=== PATIENT | female | born 1935 | race Caucasian/White ===

== ENCOUNTER 2017-05-30 16:44 | Inpatient (IN) | payer MEDICARE ==
[~2017-05-30] VITALS: Ht 167.6 cm; Wt 81.5 kg
[~2017-05-30 16:44] MED LIST: BAYER CHEWABLE81 MG PO; BRILINTA90 MG PO; DESERYL100 MG PO; DITROPAN X5 MG/BOTTL PO; FISH OIL 1,2001 CAP PO; FLAXSEED OIL1000 MG; GLUCOSAMINE & C1 CAP; HYZAAR 100-25 T1 TAB PO; LOPID600 MG PO; NORVASC5 MG PO; PRAVACHOL40 MG PO; SYNTHROID100 MCG PO
[2017-05-30 17:45] LABS: BASOPHILS 0.1 % (0-2); EOSINOPHILS 0.6 % (0-7); HEMATOCRIT 33.5 % (36.0-48.0); HEMOGLOBIN 11.4 g/dL (12-16); IMMATURE GRANULOCYTES 0.6 % (0-5); LYMPHOCYTES 5.6 % (15-50); MCH 31.3 pg (26.0-34.0); MEAN PLATELET VOLUME 9.6 fL (7.4-10.4); MONOCYTES 11.6 % (2-11); NEUTROPHILS 81.5 % (40-80); PLATELET COUNT 298 10x3/uL (130-400); RBC 3.64 10x6/uL (4.00-5.40); WBC 19.3 10x3/uL (4.8-10.8)
[2017-05-30 17:53] LABS: APTT 41.8 SECONDS (22.8-39.4); INR 2.08 (0.85-1.17); PROTIME 23.4 SECONDS (11.6-15.0)
[2017-05-30 18:10] LABS: BILIRUBIN - TOTAL 0.86 mg/dL (0.2-1.3); CALCIUM 10.4 mg/dL (8.5-10.1); CARBON DIOXIDE 24.5 mmol/L (21.0-32.0); CREATININE - SERUM 3.8 mg/dL (0.6-1.3); POTASSIUM - SERUM 4.5 mmol/L (3.5-5.1); PROTEIN - SERUM 7.4 g/dL (6.4-8.2)
[2017-05-30 18:24] LABS: AMYLASE - SERUM 17 U/L (25-115); LIPASE 82 U/L (73-393)
[2017-05-30 18:42] LABS: APPEARANCE TURBID (CLEAR); BILIRUBIN NEGATIVE (NEGATIVE); COLOR YELLOW (YELLOW); GLUCOSE NEGATIVE (NEGATIVE); KETONE NEGATIVE (NEGATIVE); NITRITE NEGATIVE (NEGATIVE); PROTEIN 1+ mg/dL (NEGATIVE); SPECIFIC GRAVITY 1.015 (1.005-1.020); UROBILINOGEN NORMAL (NORMAL)
[2017-05-30 18:43] LABS: BACTERIA MANY /hpf (NONE SEEN); EPITHELIAL CELLS 0-5 /hpf (0-5); RED CELLS - URINE 0-5 /hpf (0-5); WHITE CELLS - URINE >50 /hpf (0-5)
--- NOTE | 2017-05-30 20:14 | NUR ---
PATIENT ARRIVED FROM THE ER VIA STRETCHER , ALERT AND ORIENTED TO ROOM AND CALL LIGHT. CALL LIGHT PLACED IN REACH.
[2017-05-30] MEDS ORDERED: CIPRO500 MG PO (20:21)
[2017-05-30] MEDS ORDERED: BETAPACE 80 MG80 MG PO (20:22)
[2017-05-30] MEDS ORDERED: CELEBREX200 MG PO (20:22)
[2017-05-30 21:12] VITALS: BP 136/76
[2017-05-31 00:52] VITALS: BP 124/44
[2017-05-31 00:56] VITALS: BP 136/76; BMI 27.5
--- NOTE | 2017-05-31 01:27 | NUR ---
PATIENT PULLED IV OUT STATING THAT IT HURT. NEW IV STARTED IN LEFT AC. CALL LIGHT IN REACH, WILL CONTINUE TO MONITOR.
--- NOTE | 2017-05-31 05:23 | NUR ---
DIRECTOR OF SPORTS PERFORMANCE AT BEDSIDE TO OBTAIN VITALS, CALL LIGHT IN REACH. WILL CONTINUE WITH PLAN OF CARE.
[2017-05-31 05:29] LABS: BASOPHILS 0.1 % (0-2); EOSINOPHILS 0.5 % (0-7); HEMATOCRIT 32.5 % (36.0-48.0); HEMOGLOBIN 10.9 g/dL (12-16); IMMATURE GRANULOCYTES 0.6 % (0-5); LYMPHOCYTES 6.4 % (15-50); MCH 30.6 pg (26.0-34.0); MCHC 33.5 g/dL (31.0-37.0); MCV 91.3 fL (80.0-100.0); MEAN PLATELET VOLUME 9.5 fL (7.4-10.4); MONOCYTES 11.8 % (2-11); NEUTROPHILS 80.6 % (40-80); PLATELET COUNT 301 10x3/uL (130-400); RBC 3.56 10x6/uL (4.00-5.40); RDW 15.2 % (11.5-14.5)
[2017-05-31 05:53] VITALS: BP 131/70
[2017-05-31 05:56] LABS: ANION GAP 18.2 mmol/L (8-16); CALCIUM 9.5 mg/dL (8.5-10.1); CARBON DIOXIDE 21.1 mmol/L (21.0-32.0); CREATININE - SERUM 3.4 mg/dL (0.6-1.3); POTASSIUM - SERUM 4.3 mmol/L (3.5-5.1)
--- NOTE | 2017-05-31 06:30 | NUR ---
PATIENT HAS BEEN YELLING AT STAFF DURING THE NIGHT, SHE STATES " I AM NOT GETTING GOOD CARE AND NO ONE HAS BEEN IN HERE ALL NIGHT AND I WANT TO SPEAK TO SOMEONE WITH AUTHORITY" I NOTIFIED BEAR MELENDEZ. STAFF HAS BEEN IN AND OUT OF HER ROOM SEVERAL TIMES DURING THE NIGHT, I SPOKE WITH DR CLEMENTE AND HE ORDERED 5 MG OF HALDOL IM, PATIENT NOTIFIED OF ORDER, CALL LIGHT IN REACH. PATIENT ALSO COMPLAINED THAT SHE NEEDED O2, I CHECKED O2 SAT AND IT WAS 95% ON ROOM AIR.
--- NOTE | 2017-05-31 07:29 | NUR ---
AM ROUNDS- ADMINISTERED 5MG OF HALDOL ORDERED. PT IN BED, ASKING ABOUT BREAKFAST, INFORMED PT THAT BREAKFAST WILL COME AROUND 0800. RESP EVEN AND UNLABORED, LT AC INFUSING NS AT 100. PROVIDED PT WITH CUP OF WATER. PT DENIES ANY OTHER NEEDS AT THIS TIME. CALL LIGHT IN REACH, NAD NOTED, WILL CONTINUE PLAN OF CARE.
[2017-05-31 08:00] VITALS: BP 123/73
--- NOTE | 2017-05-31 09:06 | NUR ---
HELPED PT TO REPOSITIONED IN BED, AND HELPED HER TO USE BEDPAN. PT WILL NOTIFY WHEN READY TO GET OFF BEDPAN. CALL LIGHT IN REACH
--- NOTE | 2017-05-31 10:30 | NUR ---
AM MEDS GIVEN. PT C/O OF BACK PAIN. ASKING FOR SOMETHING FOR PAIN. JOSESITO GUIDE DOG TRAINER IN ROOM TO ASSESS PT.
[2017-05-31 13:20] VITALS: BP 149/71
--- NOTE | 2017-05-31 14:01 | NUR ---
ORDERS FOR MAGALI PER DR. MAGAÑA.
--- NOTE | 2017-05-31 15:15 | NUR ---
APPLIED BANGAY TO PT'S BACK AND RT LEG. PT DENIES ANY OTHER NEEDS AT THIS TIME. CALL LIGHT IN REACH, NAD NOTED.
[2017-05-31 15:28] LABS: ERYTHROCYTE SEDIMENTATION RATE 27 mm/hr (0-30)
[2017-05-31 16:47] VITALS: BP 157/85
[2017-05-31 16:50] LABS: APPEARANCE HAZY (CLEAR); BILIRUBIN NEGATIVE (NEGATIVE); COLOR YELLOW (YELLOW); GLUCOSE NEGATIVE (NEGATIVE); KETONE NEGATIVE (NEGATIVE); NITRITE NEGATIVE (NEGATIVE); PROTEIN 2+ mg/dL (NEGATIVE); SPECIFIC GRAVITY 1.015 (1.005-1.020); UROBILINOGEN NORMAL (NORMAL)
[2017-05-31 16:53] LABS: WHITE CELLS - URINE >50 /hpf (0-5)
[2017-05-31 16:54] LABS: CREATININE - URINE 57.2 mg/dL (30-125); PRO/CRE RATIO URINE 1.5 mg/g; PROTEIN - URINE 84.7 mg/dL (0.0-11.9)
[2017-05-31 16:55] LABS: BACTERIA FEW /hpf (NONE SEEN)
--- NOTE | 2017-05-31 20:26 | NUR ---
PT PULLED IV OUT AT THIS TIME "PT STATES I HAVENT SLEPT IN 3 DAYS, SO I PULLED THIS DAMN THING OUT" CATH TIP WAS INTACT. PT IS REFUSING A RESTICK AT THIS TIME. PT IS ALSO REFUSING VITALS AT THIS TIME. PT STATES "I DONT WANT THAT BITCH IN HERE BOTHERING ME ALL NIGHT" NO VITAL SIGNS WILL BE TAKEN PER PT REQUEST.
--- NOTE | 2017-05-31 23:48 | NUR ---
PT ALLOWED A RESTICK AT THIS TIME. IV RESITED TO RIGHT FOREARM 22GAUGE. WILL RESUME FLUIDS
--- NOTE | 2017-06-01 02:30 | NUR ---
PT PULLED IV OUT FOR SECOND TIME TONIGHT. PT STATES "I DONT WANT THAT IN MY ARM" PT IS SHOWING INCREASED AGITATION AND STATES "IM NOT STAYING ANOTHER NIGHT" PT IS UNABLE TO BE CONSOLED.
--- NOTE | 2017-06-01 02:49 | NUR ---
CALL LIGHT IN REACH, WILL CONTINUE WITH PLAN OF CARE.
[2017-06-01 07:27] LABS: BASOPHILS 0.2 % (0-2); EOSINOPHILS 0.4 % (0-7); HEMATOCRIT 33.3 % (36.0-48.0); HEMOGLOBIN 11.5 g/dL (12-16); IMMATURE GRANULOCYTES 1.5 % (0-5); LYMPHOCYTES 7.3 % (15-50); MCH 30.3 pg (26.0-34.0); MCHC 34.5 g/dL (31.0-37.0); MEAN PLATELET VOLUME 9.3 fL (7.4-10.4); MONOCYTES 9.5 % (2-11); NEUTROPHILS 81.1 % (40-80); PLATELET COUNT 329 10x3/uL (130-400); RDW 14.7 % (11.5-14.5); WBC 19.3 10x3/uL (4.8-10.8)
[2017-06-01 07:28] LABS: MCV 87.6 fL (80.0-100.0)
--- NOTE | 2017-06-01 07:46 | NUR ---
AM ROUNDS - PT IN BED AT THIS TIME AND APPEARS TO BE SLEEPING. NO IV, PT CONTINUES TO PULL OUT. PT IS ON ROOM AIR. TRINITY MAT ON AND WORKING. REFUSES SCD. UP WITH ASSIST. BED AT LOWEST POSITION. CALL PAUL IN USE/REACH. SIDE RAILS UP X2. WILL CONTINUE TO MONITOR
[2017-06-01 07:55] LABS: ALBUMIN 2.7 g/dL (3.4-5.0); BILIRUBIN - TOTAL 0.7 mg/dL (0.2-1.3); CALCIUM 8.8 mg/dL (8.5-10.1); CARBON DIOXIDE 20.1 mmol/L (21.0-32.0); PROTEIN - SERUM 6.3 g/dL (6.4-8.2)
[2017-06-01 08:00] VITALS: BP 152/91
[2017-06-01 08:01] LABS: ANION GAP 19.2 mmol/L (8-16); CREATININE - SERUM 1.8 mg/dL (0.6-1.3); POTASSIUM - SERUM 3.3 mmol/L (3.5-5.1)
[2017-06-01 11:48] VITALS: BP 138/84
[2017-06-01 13:25] VITALS: Ht 167.6 cm; Wt 81.5 kg
[2017-06-01 16:15] VITALS: BP 157/90
--- NOTE | 2017-06-01 17:41 | NUR ---
PT IN BED AT THIS TIME WITH NO NEEDS. WILL CONTINUE TO MONITOR
--- NOTE | 2017-06-01 20:10 | NUR ---
ASSISTED PT TO BATHROOM. PT NOW IN BED RESTING QUEITLY. TRINITY ALARM ON. BREATHING EVEN AND UNLABORED. BED IN LOW POSITION, CALL LIGHT WITHIN REACH. WILL CTM.
[2017-06-01 21:38] VITALS: BP 144/68
[2017-06-02 01:53] VITALS: BP 133/72
[2017-06-02 04:59] VITALS: BP 125/63
--- NOTE | 2017-06-02 05:30 | NUR ---
PT IN BED RESTING QUIETLY. CONTINUES TO GET OUT OF BED WITHOUT CALLING FOR ASSISTANCE. TRINITY ALARM ON. BED IN LOW POSITION, CALL LIGHT WITHIN REACH. WILL CTM.
[2017-06-02 06:31] LABS: HEMATOCRIT 35.4 % (36.0-48.0); HEMOGLOBIN 12.4 g/dL (12-16); MCH 30.5 pg (26.0-34.0); PLATELET COUNT 371 10x3/uL (130-400); RBC 4.07 10x6/uL (4.00-5.40); RDW 14.4 % (11.5-14.5)
[2017-06-02 06:50] LABS: ALBUMIN 2.7 g/dL (3.4-5.0); BILIRUBIN - TOTAL 0.8 mg/dL (0.2-1.3); CALCIUM 8.8 mg/dL (8.5-10.1); CARBON DIOXIDE 22.1 mmol/L (21.0-32.0); PROTEIN - SERUM 7.3 g/dL (6.4-8.2)
[2017-06-02 06:51] LABS: ANION GAP 15.8 mmol/L (8-16); CREATININE - SERUM 1.1 mg/dL (0.6-1.3)
[2017-06-02 06:52] LABS: POTASSIUM - SERUM 2.9 mmol/L (3.5-5.1)
[2017-06-02 06:59] LABS: LYMPHOCYTES 20 % (15-50); MONOCYTES 2 % (2-11); NEUTROPHILS 77 % (40-80)
[2017-06-02 07:00] LABS: PLATELET ESTIMATE INCREASED; TEAR DROP CELLS OCC
[2017-06-02 07:01] LABS: POIKILOCYTOSIS OCC
--- NOTE | 2017-06-02 07:10 | NUR ---
MORNING ROUNDS MADE. PATIENT SITTING ON BEDSIDE. ASSISTED TO RESTOOM AND BACK TO BED. DENIES ANY NEEDS. WILL CONTINUE TO MONITOR. CPOC.
[2017-06-02 08:35] VITALS: BP 138/82
--- NOTE | 2017-06-02 09:32 | NUR ---
PATIENT SITTING UP IN BED, WATCHING TV. MORNING MEDS GIVEN WITHOUT ISSUES. NO REQUESTS AT THIS TIME. CPOC.
--- NOTE | 2017-06-02 10:37 | NUR ---
PATIENT SITTING IN BED, WATCHING TV. ADVISED IV ANTIBIOTICS HAVE BEEN ORDERED FOR HER. STATES, "MY ARMS ARE SO SORE, THEY NEED A REST. THAT'S ONE THING I WILL REFUSE. THEY CAN GIVE ME PILLS". DURING REPORT, IT WAS NOTED THAT THE PATIENT HAD PULLED OUT HER LAST 2 IVS. SHE REFUSES TO ALLOW ME TO INSERT AN IV AT THIS TIME. WILL CALL MD AND ASK TO ADVISE.
--- NOTE | 2017-06-02 11:25 | NUR ---
NFORMED TAE GUERRA OF PATIENT REFUSING IV. MARI TALKED TO PATIENT AND EXPLAINED TO HER THAT SHE IS IN THE HOSPITAL TO RECEIVE IV ANTIBIOTICS BECAUSE SHE IS TOO SICK TO BE HOME AND TAKE ANTIBIOTICS PO. PT RELUCTANTLY VOICED UNDERSTANDING AND AGREED TO ALLOW ME TO PLACE 20G IV IN LEFT FOREARM. PTS BROTHER WAS IN HALLWAY WHEN I FINISHED THE IV. HER CALLED AND ASKED ME TO HAVE HER CALL HIM BACK. WILL PASS MESSAGE ALONG TO PATIENT. STARTING ANTIBIOTICS ORDERED. WILL CONTINUE TO MONITOR. CPOC.
--- NOTE | 2017-06-02 11:57 | NUR ---
PATIENT SITTING UP IN BED, EATING LUNCH DENIES ANY NEEDS. CPOC
--- NOTE | 2017-06-02 12:05 | NUR ---
ANTIBIOTICS HUNG, IV PATENT, AND PATIENT WITHOUT COMPLAINTS. CPOC..
[2017-06-02 12:12] VITALS: BP 158/87
--- NOTE | 2017-06-02 16:16 | NUR ---
PATIENT SITTING ON BEDSIDE. ASSISTED TO BATHROOM AND BACK. DENIES ANY NEEDS AT THIS TIME. CPOC.
[2017-06-02 16:36] VITALS: BP 148/78
--- NOTE | 2017-06-02 17:51 | NUR ---
PATIENT SITTING UP IN BED, WATCHING TV. NO REQUESTS OR COMPLAINTS AT THIS TIME. CPOC.
--- NOTE | 2017-06-02 19:08 | NUR ---
EVENING ROUNDS MADE. HELPED PATIENT TO BATHROOM AND BACK. DENIES ANY NEEDS AT THIS TIME. CPOC.
[2017-06-02 21:15] VITALS: BP 151/76
--- NOTE | 2017-06-02 23:45 | NUR ---
PT IN BED RESTING AT THIS TIME. WILL CONTINUE TO MONITOR
--- NOTE | 2017-06-03 | NUR ---
PT RESTING WELL, NO CHANGES NOTED. ASSESSMENTS UNCHANGED. CALL LIGHT WITHIN REACH. WILL MONITOR.
[2017-06-03 00:50] VITALS: BP 141/85
--- NOTE | 2017-06-03 01:51 | NUR ---
PT IN BED RESTING AT THIS TIME
[2017-06-03 04:39] LABS: BASOPHILS 0 % (0-2); EOSINOPHILS 0 % (0-7); IMMATURE GRANULOCYTES 0.5 % (0-5); LYMPHOCYTES 20.4 % (15-50); MCH 30.9 pg (26.0-34.0); MCHC 34.2 g/dL (31.0-37.0); MEAN PLATELET VOLUME 11.1 fL (7.4-10.4); MONOCYTES 15.1 % (2-11); RBC 4.82 10x6/uL (4.00-5.40); RDW 12.3 % (11.5-14.5)
[2017-06-03 04:42] LABS: HEMATOCRIT 43.6 % (36.0-48.0); HEMOGLOBIN 14.9 g/dL (12-16); MCV 90.5 fL (80.0-100.0); PLATELET COUNT 252 10x3/uL (130-400); WBC 6.1 10x3/uL (4.8-10.8)
[2017-06-03 05:00] LABS: ANION GAP 14.4 mmol/L (8-16); BILIRUBIN - TOTAL 0.59 mg/dL (0.2-1.3); CALCIUM 8.7 mg/dL (8.5-10.1); CARBON DIOXIDE 21.2 mmol/L (21.0-32.0); POTASSIUM - SERUM 3.6 mmol/L (3.5-5.1); PROTEIN - SERUM 6.7 g/dL (6.4-8.2)
[2017-06-03 05:16] VITALS: BP 155/85
--- NOTE | 2017-06-03 07:15 | NUR ---
RECEIVED REPORT. ASSUMED CARE OF PATIENT. CALL LIGHT WITHIN REACH. NO DISTRESS.
--- NOTE | 2017-06-03 07:30 | NUR ---
ASSISTED PATIENT OOB TO RESTROOM AND BACK TO BED. RESP EVEN AND UNLABORED. IV FLUIDS INFUSING ORDERED. NO DISTRESS. DENIES NEEDS AT THIS TIME.
[2017-06-03 08:50] VITALS: BP 148/81
--- NOTE | 2017-06-03 10:30 | NUR ---
ASSISTED PATIENT OOB TO RESTROOM AND BACK TO BED. IV FLUIDS INFUSING ORDERED. PATIENT HAS DENIES NEEDS AT THIS TIME. CALL LIGHT PLACED WITHIN REACH. NO DISTRESS.
--- NOTE | 2017-06-03 12:00 | NUR ---
ASSISTED PATIENT TO SINK FOR ORAL CARE. NO DISTRESS.
[2017-06-03 12:20] VITALS: BP 145/81
--- NOTE | 2017-06-03 16:15 | NUR ---
ASSISTED PATIENT OOB TO RESTROOM AND BACK TO BED. CALL LIGHT PLACED WITHIN REACH. CRANBERRY JUICE PROVIDED. DENIES PAIN . NO DISTRESS.
[2017-06-03 16:39] VITALS: BP 158/91
[2017-06-03 20:00] VITALS: BP 161/81
--- NOTE | 2017-06-03 22:24 | NUR ---
INITIAL ROUNDS COMPLETEDA T 1920 HRS. PT DENIED ANY DISCOMFORT. ASSESSMENT COMPLETED AT 2004 HRS. VSS. IV TO LFA WITH NS AT 125CC/HR. IV PATENT. BRUISING NOTED TO FACE, BILAT KNEES, BILAT ARMS AND LOWER BACK. LUNGS ESSENTAILLY CTA. REFUSES SCD'S. ASSISTED TO BR AT THAT TIME. GAIT UNSTEADY. ASSISTED BACK TO BED. PT HAD MODERATE AMOUNT OF DIARRHEA. PM MEDS GIVEN. PT CURRENTLY RESTING WITH EYES CLOSED. RESP EVEN AND REGULAR. SR UP X2, CALL LIGHT WITIN REACH AND BED ALARM ON.
[2017-06-04] VITALS: BP 149/89
--- NOTE | 2017-06-04 00:27 | NUR ---
ASSISTED PT TO BR. MODERATE AMOUNT OF DIARRHEA NOTED. ASSISTED BACK TO BED. WILL CONTINUE TO MONITOR. SR UP X2, CALL LIGHT WITHIN REACH AND BED ALARM ON.
--- NOTE | 2017-06-04 02:19 | NUR ---
PT RESTING WITH EYES CLOSED. RESP EVEN AND REGULAR. SR UP X2, CALL LIGHT WITHIN REACH.
[2017-06-04 04:00] VITALS: BP 163/83
--- NOTE | 2017-06-04 04:45 | NUR ---
ASSISTED PT TO BR. GAIT UNSTEADY. VOIDED LARGE AMOUNT OF YELLOW URINE. ASSISTED BACK TO BED. SR UP X2, CALL LIGHT WITHIN REACH.
[2017-06-04 05:04] LABS: BASOPHILS 0.2 % (0-2); EOSINOPHILS 1.5 % (0-7); IMMATURE GRANULOCYTES 6.6 % (0-5); MCH 30.4 pg (26.0-34.0); MCHC 34.2 g/dL (31.0-37.0); MEAN PLATELET VOLUME 8.7 fL (7.4-10.4); MONOCYTES 12.7 % (2-11); RBC 3.91 10x6/uL (4.00-5.40); RDW 14.8 % (11.5-14.5)
[2017-06-04 05:07] LABS: HEMATOCRIT 34.8 % (36.0-48.0); HEMOGLOBIN 11.9 g/dL (12-16); PLATELET COUNT 369 10x3/uL (130-400); WBC 16.4 10x3/uL (4.8-10.8)
[2017-06-04 05:35] LABS: ALBUMIN 2.5 g/dL (3.4-5.0); ALKALINE PHOSPHATASE 106 U/L (46-116); CALCIUM 7.9 mg/dL (8.5-10.1); CARBON DIOXIDE 21.7 mmol/L (21.0-32.0); CHLORIDE - SERUM 94 mmol/L (98-107); GLUCOSE 125 mg/dL (74-106); PROTEIN - SERUM 6.5 g/dL (6.4-8.2); SODIUM 130 mmol/L (136-145)
[2017-06-04 05:36] LABS: CALC OSMOLALITY 259 mosm/kg (275-300); CREATININE - SERUM 0.6 mg/dL (0.6-1.3); UREA NITROGEN 8 mg/dL (7-18); eGFR NON AFRICAN AMERICAN > 90 mL/min (90-120)
[2017-06-04 05:37] LABS: ALT (SGPT) 30 U/L (10-68); POTASSIUM - SERUM 2.7 mmol/L (3.5-5.1)
--- NOTE | 2017-06-04 06:30 | NUR ---
K+ 2.7 THIS AM. KDUR 20 MEQ PO GIVEN PER ELECTROLYTE PROTOCOL. AM MEDS GIVEN. PT UP NUMEROUS TIMES TO BR. STATED HAD SEVERAL BOUTS OF DIARRHEA DURING SHIFT. NEEDS MET; LUISA CONTINUE TO MONITOR.
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
[2017-06-04 08:27] VITALS: BP 174/89
--- NOTE | 2017-06-04 08:31 | NUR ---
ADMINISTERED AM MEDS. AND SECOND DOSE OF 20MEQ OF K. PT STATED " I DONT WANT ANYMORE ANTIBIOTICS, I WILL REFUSE. THEY ARE MAKING ME MORE SICK." INFOMRED PT THAT THE ANTIBIOTICS ARE HELPING WITH UTI. PT STILL STATING THAT SHE WILL NOT HAVE ANYMORE ANTIBIOTICS UNTIL SHE TALKS TO A DOCTOR. PT IN BED, DENIES ANY OTHER NEEDS AT THIS TIME. CALL LIGHT IN REACH, NAD NOTED, WILL CONTINUE PLAN OF CARE.
--- NOTE | 2017-06-04 09:39 | NUR ---
ANTONIETA WITH HOUSEKEEPING NOTIFIED THIS NURSE THAT PT IS REFUSING TO HAVE ROOM CLEANED. PT WANTS TO SLEEP.
--- NOTE | 2017-06-04 10:22 | NUR ---
PT REFUSED FOR HER ANTIBIOTIC TO BE HUNG AT THIS TIME. SHE STATED " I AM NOT TAKING ANYMORE ANTIBIOTICS UNTIL I TALK TO THE DOCTOR." PT ALSO WANTS TO GET IN THE SHOWER, WILL HAVE WIND TURBINE INSTALLER GET SUPPLIES FOR SHOWER. PT UP TO SIDE OF BED, DENIES ANY OTHER NEEDS AT THIS TIME. CALL LIGHT IN REACH, TRINITY MAT IN PLACE, NAD NOTED.
--- NOTE | 2017-06-04 11:05 | NUR ---
Is the patient Alert and Oriented? Yes 0 * How many steps to enter\\exit or inside your home? "bunch" 0 * PCP DR Hirsch 0 * [facility] [address] [facility] [place] 0 * Preadmission Environment Home with Family 0 * ADLs Independent 0 * Equipment Walker 0 * Other Equipment Denies any additional DME 0 * List name and contact numbers for known caregivers / representatives who currently or will assist patient after discharge: Jesus Vicente- [facility]- [phone] 0 * Community resources currently utilized None 0 * Please name any agencies selected above. N/A 0 * Additional services required to return to the preadmission environment? No 0 * Can the patient safely return to the preadmission environment? Yes 0 * Has this patient been hospitalized within the prior 30 days at any hospital? No 0
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
--- NOTE | 2017-06-04 11:49 | NUR ---
PT GLUE SPREADER LIGHT, WANTS TO GO TO THE BATHROOM, HELPED PT TO BATHROOM AND BACK TO BED. PT ONLY URINATED. ASKED PT IF SHE HAS BEEN HAVING DIARRHEA ALL NIGHT, PT STATED I WENT A COUPLE OF TIMES, BUT THAT IS NOT UNUSUAL FOR ME TO HAVE DIARRHEA THAT'S WHY I ALWAYS WEAR BRIEFS AT HOME ALL THE TIME.
[2017-06-04 11:57] VITALS: BP 170/90
[2017-06-04] MEDS ORDERED: FLORAJEN3 CAPS460 MG PO (13:55)
[2017-06-04] MEDS ORDERED: THERMOTABS 1 GM1 GM PO (13:57)
[2017-06-04] MEDS ORDERED: OMNICEF300 MG PO (13:57)
[2017-06-04 14:11] LABS: SPE - A/G RATIO 0.8 (0.7-1.7); SPE - ALBUMIN 2.7 g/dL (2.9-4.4); SPE - ALPHA-1 GLOBULIN 0.6 g/dL (0.0-0.4); SPE - ALPHA-2 GLOBULIN 0.9 g/dL (0.4-1.0); SPE - GAMMA GLOBULIN 0.7 g/dL (0.4-1.8); SPE - M-SPIKE 0.2 g/dL (Not Observed)
[2017-06-04 15:14] LABS: UPE RAND - ALPHA 1 GLOBULIN 4.4 % (()); UPE RAND - ALPHA 2 GLOBULIN 8.9 % (()); UPE RAND - BETA GLOBULIN 22.7 % (())
--- NOTE | 2017-06-04 16:29 | NUR ---
PROVIDED VERBAL AND WRITTEN DISCHARGE TEACHING TO PT, PT VERBALIZED UNDERSTANDING REGARDING TEACHING. D/C LT FA IV, TIP INTACT. PT WAITING ON RIDE, WILL NOTIFY NURSE WHEN RIDE GETS HERE. NAD NOTED.
--- NOTE | 2017-06-04 16:45 | NUR ---
Patient Name: RAÚL KERR Encounter No: [id number] : 1935 Primary Insurance: [employer] P[employer] MCR [employer] Anticipated DC Date: 06-04-2017 Planned Disposition: Home DCP follow-up note: CM MET WITH PT IN ROOM TO DISCUSS DISCHARGE NEEDS AND PLANNING. CM DISCUSSED AVAILABILITY OF HOME HEALTH, REHAB SERVICES AND MEDICAL EQUIPMENT. PT DENIES DISCHARGE NEEDS, DECLINES HOME HEALTH SPECIFICALLY REPORTING SHE WILL CROSS THAT ROAD IF SHE NEEDS IT. PT ASKED CM TO CALL HER SPOUSE TO TRANSPORT HOME AT DISCHARGE. CM CALLED MR. KERR AT [phone], WHO REPORTS THAT IF PT CAN WALK, HE WILL HAVE PT'S SISTER IN LAW ON THE WAY TO PICK HER UP. PT REPORTS SHE CAN WALK. SPOUSE INFORMED. IMPORTANT MESSAGE FROM MEDICARE PROVIDED AND EXPLAINED. BEDSIDE NURSE NOTIFIED. Sonny Obrien, CASE MANAGEMENT
--- NOTE | 2017-06-04 16:57 | NUR ---
PT LEFT UNIT VIA WHEELCHAIR, ACCOMPANIED BY BROTHER, NA DNOTED.
[2017-06-07 19:11] LABS: AEROBE ID Final report (()); RESULT 1 Escherichia coli (())
== END 2017-06-04 16:57 | disposition home or self-care (01) | DRG 683 ==
LOC: D.ER 16:44 → D.M2 19:38
PROVIDERS: Emergency Medicine; Internal Medicine Nephrology; Physician Assistant Medical; ADMIT Family Medicine Adult Medicine
DX: N17.9 Acute kidney failure, unspecified (principal); N39.0 Urinary tract infection, site not specified; E87.1 Hypo-osmolality and hyponatremia; B96.20 Unspecified Escherichia coli [E. coli] as the cause of diseases classified elsewhere; N10 Acute pyelonephritis; I12.9 Hypertensive chronic kidney disease with stage 1 through stage 4 chronic kidney disease, or unspecified chronic kidney disease; N18.9 Chronic kidney disease, unspecified; E87.6 Hypokalemia; E86.0 Dehydration

== ENCOUNTER 2017-07-30 11:11 | Outpatient (CLI) | payer MEDICARE ==
[~2017-07-30] VITALS: Ht 167.6 cm; Wt 75.0 kg
--- NOTE | ~2017-07-30 | HEMODYNAMI ---
PATIENT:RACHEL KERR MEDICAL RECORD: [id number] : 39 LOCATION:D.CAT ADMISSION DATE: 07/30/17 Generatedon:07/30/201713:33 Patient name: RACHEL KERR Patient #: [id number] SSN: : [birth year] Date of study: 07/30/2017 Page: Of Hemodynamic Procedure Report Patient Data Patient Demographics Procedure consent was obtained First Name: RACHEL Gender: Female Last Name: USHA : 1935 [facility] Initial: MADAY Age: 82 year(s) Patient #: [id number] Race: Additional ID: [id number] Contact details Address: [address] [place] [address] State: [place] City: [facility] Zip code: [address] Past Medical History Allergies Allergen Reaction Date Comments Reported Sulfa drugs 07/13/2015 Admission Admission Data Admission Date: 07/30/2017 Admission Time: 11:11 Lab Results Lab Result Date: 07/30/2017 Lab Result Time: 0:00 Biochemistry Name Units Result Min Max BUN mg/dl 15 --(--*-)-- 7 18 Creatinine mg/dl 1 --(--*-)-- 0.6 1.3 CBC Name Units Result Min Max Hemoglobin g/dl 11.9 *-(----)-- 13.5 17.5 Procedure Procedure Types Cath Procedure Diagnostic Procedure Cardioversion Procedure Description Procedure Date Procedure Date: 07/30/2017 Procedure Start Time: 13:24 Procedure End Time: 13:30 Procedure Staff Name Function Nicolas Hewitt MD Performing Physician Imani Lozano RT Monitor Vincenzo Adame RN Nurse Calixto Mariscal Jr, CRNA Additional personnel Procedure Data Cath Procedure Fluoroscopy Diagnostic fluoroscopy Total fluoroscopy Time: 0 time: 0 min min Diagnostic fluoroscopy Total fluoroscopy dose: 0 dose: 0 mGy mGy Contrast Material Contrast Material Type Amount (ml) Isovue 300 0 Estimated blood loss: 0 ml Procedure Complications No complications Procedure Medications Medication Administration Route Dosage Oxygen NC 2 l/min Refer to Anesthesia Notes for Sedation Medications Hemodynamics Rest Heart Rate: 40 (bpm) Snapshots Pre Cath Intra NCS Post Cath Vital Signs Time Heart Resp SPO2 etCO2 NIBP (mmHg) Rhythm Pain Sedation Rate (ipm) (%) (mmHg) Status Level (bpm) 13:20:12 67 17 100 0 Measuring NSR 0 (11) 10(A) , No pain 13:20:26 69 15 97 0 180/82(130) NSR 0 (11) 10(A) , No pain 13:24:58 69 15 98 27.5 168/88(119) NSR 0 (11) 9(A) , No pain 13:29:14 71 22 97 0 130/74(98) NSR 0 (11) 10(A) , No pain Medications Time Medication Route Dose Verified Delivered Reason Notes Effectiven ess by by 13:21:55 Oxygen NC 2 Nicolas Shereenie used for l/min Kash Adame assistant paralegal 13:21:58 Refer to Nicolas Shereenie Anesthesia Kash Adame RN Notes for Sedation Medications Procedure Log Time Note 13:10:06 Informed consent obtained and on chart 13:10:10 Diagnostic Cath Status : Elective 13:10:55 Imani Lozano RT(R) sent for patient. Start room use. 13:10:56 Time tracking: Regular hours 13:11:01 Plan of Care:Hemodynamics will remain stable., Cardiac rhythm will remain stable., Comfort level will be maintained., Respiratory function will remain adequate., Patient/ family verbilizes understanding of procedure., Procedure tolerated without complication., Recovers from procedure without complications.. 13:14:39 Patient received from Pre/Post Procedure Room to [facility] 3 Alert and oriented. Tansferred to table in Supine position. 13:14:41 Warm blankets applied, and aidee hugger turned on for patient comfort. 13:14:41 Correct patient and procedure confirmed by team. 13:14:42 ECG and BP/O2 sat monitors applied to patient. 13:18:22 Vital chart was started 13:18:30 Rhythm: atrial flutter 13:18:31 Full Disclosure recording started 13:18:40 H&P Date Dictated: 07/19/2017 Within 30 days and on chart., H&P Addendum completed by physician on day of procedure. (MUST COMPLETE FOR ALL OUTPATIENTS). 13:18:42 Pre-procedure instructions explained to patient. 13:18:43 Pre-op teaching completed and patient verbalized understanding. 13:18:46 Family in patients room. 13:18:47 Patient NPO since Midnight. 13:18:50 Is the patient allergic to Iodine/contrast media? No. 13:18:51 Was the patient premedicated? No 13:18:52 Is patient on blood thinner?Yes 13:18:57 ACC The patient was administered the following blood thiners within the last 24 hours: Xarelto 13:19:02 Patient diabetic? No. 13:19:06 Previous problem with sedation/anesthesia? No ? 13:19:10 Snore? Yes 13:19:11 Sleep apnea? No 13:19:12 Deviated septum? No 13:19:14 Opens mouth fully? Yes 13:19:14 Sticks out tongue? Yes 13:19:16 Airway obstruction? No ? 13:19:20 Dentures? No ? 13:19:55 Pre procedure: right dorsailis pedis pulse 1+ Palpable, but thready & weak; easily obliterated 13:19:57 Pre procedure: left dorsailis pedis pulse 1+ Palpable, but thready & weak; easily obliterated 13:19:59 Patient pain scale 0/10 ?. 13:20:04 IV patent on arrival in right forearm with 0.9% NaCl at [facility]. 13:21:55 Oxygen 2 l/min NC was administered by Vincenzo Adame RN; used for procedure; 13:21:58 Refer to Anesthesia Notes for Sedation Medications was administered by Vincenzo Adame RN; ; 13:22:32 Lab Result : Hemoglobin 11.9 g/dl 13:22:32 Lab Result : Creatinine 1 mg/dl 13:22:32 Lab Result : BUN 15 mg/dl 13:22:39 Lab results completed and on chart. 13:22:46 Alarms reviewed by R. N. 13:22:46 Sharps counted by scrub and verified by R.N. 13:22:48 Physician arrived 13::48 --------ALL STOP TIME OUT------ 13:22:49 Final Timeout: patient, procedure, and site verified with staff and physician. All members of the team are in agreement. 13:22:51 Mid Chest site verified by team. 13:22:53 Physical assessment completed. ASA score P 2 - A patient with mild systemic disease as per Nicolas Hewitt MD. 13::56 Sedation plan: TIVA Medication:Propofol 13:23:11 Calixto Mariscal Jr QUALITY CLOTH TESTER present and monitoring patient for TIVA. 13:23:16 Quick combo pads placed on patients chest and back. 13:23:24 Quick Combo opened to sterile field. 13:24:19 Procedure started. 13:24:35 Defibrillator synced and charged to 100 Joules. 13::56 Baseline sample Acquired. 13:25:05 Baseline sample Acquired. 13:25:44 Shock delivered. 13:26:21 Patient cardioverted to sinus rhythm . 13:26:26 Procedure ended.(Physican Out) 13::28 Fluoroscopy time 00.00 minutes. 13::31 Fluoroscopy dose: 0 mGy 13:: Flurop Dose total: 0 13::35 Contrast amount:Isovue 300 0ml. 13:26:37 Sharps counted by scrub and verified by R.N. 13:26:38 Insertion/operative site no bleeding no hematoma. 13::43 Post procedure rhythm: sinus rhythm 13::47 Estimated blood loss: 0 ml 13:26:51 Post procedure instruction explained to patient.Patient verbalizes understanding. 13:26:51 Patient needs reinforcement of post procedure teaching. 13:27:03 Procedure and supply charges have been captured, reviewed, submitted and are correct. 13:27:08 Procedure Complication : No complications 13:30:36 Vital chart was stopped 13:30:37 See physician's report for complete and final results. 13:30:39 Report given to Pre/Post Procedure Room. 13:30:42 Patient transfered to Pre/Post Procedure Room with Stretcher. 13:30:44 Procedure ended. 13:30:44 Full Disclosure recording stopped 13:30:47 End room use (Document Last) Device Usage Item Manufacture Quantity Catalog Hospital Part Current Minimal Lot# / Name Number Charge Number Stock Stock Kourtney al# Code Baileyu 1 [id number] Combo Signature Audit [place] Stage Time Signature Unsigned Intra-Procedure 07/30/2017 Imani Lozano 1:33:14 PM RT(R) Signatures Monitor : Imani Lozano RT Signature : Date : Time : [address] [place] [address]
[~2017-07-30 11:11] MED LIST changes: +BETAPACE 80 MG80 MG PO; +CELEBREX200 MG PO; +CIPRO500 MG PO; +FLORAJEN3 CAPS460 MG PO; +OMNICEF300 MG PO; +THERMOTABS 1 GM1 GM PO
[2017-07-30] MEDS ORDERED: HYZAAR 100-25 T1 TAB PO (11:47)
[2017-07-30] MEDS ORDERED: XARELTO15 MG PO (11:47)
[2017-07-30] MEDS ORDERED: DITROPAN X10 MG/BOTT PO (11:48)
[2017-07-30 11:58] VITALS: BP 155/78; Ht 167.6 cm; Wt 75.0 kg
[2017-07-30 12:25] LABS: ANION GAP 12.9 mmol/L (8-16); CALCIUM 9.9 mg/dL (8.5-10.1); CARBON DIOXIDE 28.8 mmol/L (21.0-32.0); CREATININE - SERUM 0.8 mg/dL (0.6-1.3); POTASSIUM - SERUM 3.7 mmol/L (3.5-5.1)
[2017-07-30 12:34] LABS: INR 1.71 (0.85-1.17); PROTIME 19.2 SECONDS (11.6-15.0)
[2017-07-30 12:53] LABS: HEMOGLOBIN 13.7 g/dL (12-16); LYMPHOCYTES 27.2 % (15-50); MCH 31.1 pg (26.0-34.0); MCHC 34.3 g/dL (31.0-37.0); MCV 90.7 fL (80.0-100.0); MEAN PLATELET VOLUME 9.7 fL (7.4-10.4); NEUTROPHILS 65.6 % (40-80); RBC 4.41 10x6/uL (4.00-5.40); RDW 14.8 % (11.5-14.5); WBC 8.4 10x3/uL (4.8-10.8)
[2017-07-30 13:00] LABS: PLATELET COUNT 263 10x3/uL (130-400)
== END 2017-07-30 15:01 | disposition home or self-care (01) ==
LOC: D.CATH 11:11
PROVIDERS: Internal Medicine Cardiovascular Disease
DX: I48.91 Unspecified atrial fibrillation (principal); Z01.812 Encounter for preprocedural laboratory examination

== ENCOUNTER 2017-10-29 13:38 | Emergency (ER) | payer MEDICARE ==
[2017-07-30 11:58] VITALS: BMI 26.7
[~2017-10-29 13:38] MED LIST changes: +DITROPAN X10 MG/BOTT PO; +XARELTO15 MG PO
[2017-10-29 14:57] LABS: APPEARANCE HAZY (CLEAR); BILIRUBIN NEGATIVE (NEGATIVE); COLOR YELLOW (YELLOW); GLUCOSE NEGATIVE (NEGATIVE); KETONE NEGATIVE (NEGATIVE); NITRITE POSITIVE (NEGATIVE); PROTEIN 1+ mg/dL (NEGATIVE); UROBILINOGEN NORMAL (NORMAL)
[2017-10-29 14:58] LABS: BACTERIA MANY /hpf (NONE SEEN); EPITHELIAL CELLS 0-5 /hpf (0-5); RED CELLS - URINE 0-5 /hpf (0-5); WHITE CELLS - URINE >50 /hpf (0-5)
[2017-10-29 15:00] LABS: BASOPHILS 0.2 % (0-2); EOSINOPHILS 2.8 % (0-7); HEMATOCRIT 25.8 % (36.0-48.0); HEMOGLOBIN 8.6 g/dL (12-16); IMMATURE GRANULOCYTES 1.2 % (0-5); LYMPHOCYTES 15.8 % (15-50); MCH 30.5 pg (26.0-34.0); MCHC 33.3 g/dL (31.0-37.0); MCV 91.5 fL (80.0-100.0); MEAN PLATELET VOLUME 7.8 fL (7.4-10.4); PLATELET COUNT 301 10x3/uL (130-400); RBC 2.82 10x6/uL (4.00-5.40); RDW 16.4 % (11.5-14.5); WBC 9.3 10x3/uL (4.8-10.8)
[2017-10-29 15:11] LABS: ALBUMIN 3.1 g/dL (3.4-5.0); ANION GAP 10.4 mmol/L (8-16); BILIRUBIN - TOTAL 0.96 mg/dL (0.2-1.3); CALCIUM 8.7 mg/dL (8.5-10.1); CARBON DIOXIDE 26.1 mmol/L (21.0-32.0); POTASSIUM - SERUM 3.5 mmol/L (3.5-5.1)
[2017-10-29 16:00] LABS: INR 1.48 (0.85-1.17); PROTIME 17.5 SECONDS (11.6-15.0)
[2017-10-29 16:01] LABS: APTT 31.7 SECONDS (22.8-39.4)
== END 2017-10-29 18:23 | disposition home or self-care (01) ==
LOC: D.ER 13:38
PROVIDERS: Emergency Medicine; Nurse Practitioner Family
DX: N39.0 Urinary tract infection, site not specified (principal); R30.0 Dysuria; D64.9 Anemia, unspecified; E03.9 Hypothyroidism, unspecified; I10 Essential (primary) hypertension

== ENCOUNTER 2017-11-23 13:13 | Emergency (ER) | payer MEDICARE ==
[2017-07-30 11:58] VITALS: BMI 26.7
[2017-11-23 14:39] LABS: APPEARANCE CLEAR (CLEAR); COLOR YELLOW (YELLOW)
[2017-11-23 14:40] LABS: BILIRUBIN NEGATIVE (NEGATIVE); GLUCOSE NEGATIVE (NEGATIVE); KETONE NEGATIVE (NEGATIVE); NITRITE NEGATIVE (NEGATIVE); PROTEIN 1+ mg/dL (NEGATIVE); UROBILINOGEN NORMAL (NORMAL)
[2017-11-23 14:41] LABS: BACTERIA MANY /hpf (NONE SEEN); EPITHELIAL CELLS 0-5 /hpf (0-5); RED CELLS - URINE 0-5 /hpf (0-5); WHITE CELLS - URINE 25-50 /hpf (0-5)
== END 2017-11-23 16:50 | disposition home or self-care (01) ==
LOC: D.ER 13:13
PROVIDERS: Emergency Medicine
DX: S70.01XA Contusion of right hip, initial encounter (principal); W19.XXXA Unspecified fall, initial encounter; Y93.89 Activity, other specified; Y92.019 Unspecified place in single-family (private) house as the place of occurrence of the external cause; S76.012A Strain of muscle, fascia and tendon of left hip, initial encounter; I10 Essential (primary) hypertension; E03.9 Hypothyroidism, unspecified

== ENCOUNTER 2017-12-08 10:14 | Inpatient (IN) | payer MEDICARE ==
[~2017-12-08] VITALS: Ht 167.6 cm; Wt 71.5 kg
[2017-12-08 10:46] LABS: BASOPHILS 0.1 % (0-2); EOSINOPHILS 2.3 % (0-7); HEMATOCRIT 30.6 % (36.0-48.0); HEMOGLOBIN 10.6 g/dL (12-16); IMMATURE GRANULOCYTES 0.1 % (0-5); LYMPHOCYTES 20.7 % (15-50); MCH 30.5 pg (26.0-34.0); MCHC 34.6 g/dL (31.0-37.0); MCV 88.2 fL (80.0-100.0); MEAN PLATELET VOLUME 9.2 fL (7.4-10.4); NEUTROPHILS 62.8 % (40-80); RBC 3.47 10x6/uL (4.00-5.40); RDW 15.7 % (11.5-14.5); WBC 8.6 10x3/uL (4.8-10.8)
[2017-12-08 10:48] LABS: PLATELET COUNT 238 10x3/uL (130-400)
[2017-12-08 10:48] LABS: APPEARANCE CLOUDY (CLEAR); BILIRUBIN NEGATIVE (NEGATIVE); COLOR YELLOW (YELLOW); GLUCOSE NEGATIVE (NEGATIVE); KETONE NEGATIVE (NEGATIVE); NITRITE POSITIVE (NEGATIVE); PROTEIN 2+ mg/dL (NEGATIVE); UROBILINOGEN NORMAL (NORMAL)
[2017-12-08 10:50] LABS: BACTERIA MANY /hpf (NONE SEEN); EPITHELIAL CELLS 0-5 /hpf (0-5)
[2017-12-08 10:58] LABS: ALBUMIN 2.9 g/dL (3.4-5.0); BILIRUBIN - TOTAL 0.49 mg/dL (0.2-1.3); CALCIUM 9.2 mg/dL (8.5-10.1); CARBON DIOXIDE 21.3 mmol/L (21.0-32.0); CREATININE - SERUM 1.7 mg/dL (0.6-1.3); POTASSIUM - SERUM 3.3 mmol/L (3.5-5.1); PROTEIN - SERUM 6.7 g/dL (6.4-8.2)
[2017-12-08 14:14] LABS: APTT 134.5 SECONDS (22.8-39.4)
[2017-12-08 14:25] LABS: INR > 16.37 (0.85-1.17); PROTIME > 120.0 SECONDS (11.6-15.0)
[2017-12-09] VITALS (17 sets, daily range): BP systolic 90–153; BP diastolic 42–94; BMI 25.1
[2017-12-09 04:35] LABS: BASOPHILS 0.1 % (0-2); EOSINOPHILS 2.9 % (0-7); HEMATOCRIT 29.9 % (36.0-48.0); HEMOGLOBIN 10.2 g/dL (12-16); IMMATURE GRANULOCYTES 0.1 % (0-5); LYMPHOCYTES 22.7 % (15-50); MCH 30.5 pg (26.0-34.0); MCHC 34.1 g/dL (31.0-37.0); MCV 89.5 fL (80.0-100.0); MONOCYTES 12.5 % (2-11); NEUTROPHILS 61.7 % (40-80); PLATELET COUNT 257 10x3/uL (130-400); RBC 3.34 10x6/uL (4.00-5.40); RDW 15.8 % (11.5-14.5); WBC 7.9 10x3/uL (4.8-10.8)
[2017-12-09 05:25] LABS: ALBUMIN 2.8 g/dL (3.4-5.0); ANION GAP 17.4 mmol/L (8-16); BILIRUBIN - TOTAL 0.67 mg/dL (0.2-1.3); CALCIUM 9.1 mg/dL (8.5-10.1); CARBON DIOXIDE 20.3 mmol/L (21.0-32.0); POTASSIUM - SERUM 3.7 mmol/L (3.5-5.1); PROTEIN - SERUM 6.1 g/dL (6.4-8.2)
[2017-12-09 05:30] LABS: CREATININE - SERUM 0.8 mg/dL (0.6-1.3)
[2017-12-10] VITALS (25 sets, daily range): BP systolic 124–158; BP diastolic 58–119; Ht 167.6 cm; Wt 71.5 kg
[2017-12-10 03:53] LABS: BASOPHILS 0.1 % (0-2); EOSINOPHILS 0.3 % (0-7); HEMATOCRIT 28.6 % (36.0-48.0); HEMOGLOBIN 9.6 g/dL (12-16); IMMATURE GRANULOCYTES 0.2 % (0-5); LYMPHOCYTES 22.1 % (15-50); MCH 30.3 pg (26.0-34.0); MCHC 33.6 g/dL (31.0-37.0); MCV 90.2 fL (80.0-100.0); MEAN PLATELET VOLUME 8.9 fL (7.4-10.4); NEUTROPHILS 65.3 % (40-80); PLATELET COUNT 307 10x3/uL (130-400); RBC 3.17 10x6/uL (4.00-5.40); RDW 16.1 % (11.5-14.5)
[2017-12-10 04:12] LABS: APTT 123.9 SECONDS (22.8-39.4)
[2017-12-10 04:17] LABS: ALBUMIN 2.7 g/dL (3.4-5.0); ALKALINE PHOSPHATASE 91 U/L (46-116); ALT (SGPT) 15 U/L (10-68); CALC OSMOLALITY 281 mosm/kg (275-300); CALCIUM 8.9 mg/dL (8.5-10.1); CARBON DIOXIDE 25.1 mmol/L (21.0-32.0); CHLORIDE - SERUM 102 mmol/L (98-107); CREATINE KINASE 21 UL (21-215); CREATININE - SERUM 0.7 mg/dL (0.6-1.3); GLUCOSE 143 mg/dL (74-106); PHOSPHOROUS 2.8 mg/dL (2.5-4.9); POTASSIUM - SERUM 3.3 mmol/L (3.5-5.1); PROTEIN - SERUM 6.6 g/dL (6.4-8.2); SODIUM 138 mmol/L (136-145); eGFR NON AFRICAN AMERICAN 85 mL/min (90-120)
[2017-12-10 04:25] LABS: MAGNESIUM - SERUM 1.3 mg/dL (1.8-2.4); UREA NITROGEN 23 mg/dL (7-18); WBC 10.6 10x3/uL (4.8-10.8)
[2017-12-10 04:35] LABS: INR 7.89 (0.85-1.17); PROTIME 65.1 SECONDS (11.6-15.0)
[2017-12-10 09:17] LABS: NORMAL PLASMA / APTT 41.4 SECONDS (22.8-39.4)
[2017-12-10 16:10] LABS: APPEARANCE HAZY (CLEAR); BILIRUBIN NEGATIVE (NEGATIVE); COLOR YELLOW (YELLOW); GLUCOSE 50 mg/dL (NEGATIVE); KETONE NEGATIVE (NEGATIVE); NITRITE NEGATIVE (NEGATIVE); PROTEIN 1+ mg/dL (NEGATIVE); UROBILINOGEN NORMAL (NORMAL)
[2017-12-10 16:15] LABS: BACTERIA MODERATE /hpf (NONE SEEN); RED CELLS - URINE 0-5 /hpf (0-5); WHITE CELLS - URINE >50 /hpf (0-5)
[2017-12-11] VITALS (24 sets, daily range): BP systolic 116–161; BP diastolic 71–128
[2017-12-11 04:08] LABS: BASOPHILS 0.1 % (0-2); EOSINOPHILS 0.2 % (0-7); HEMOGLOBIN 8.4 g/dL (12-16); IMMATURE GRANULOCYTES 0.5 % (0-5); LYMPHOCYTES 17.1 % (15-50); MCH 29.7 pg (26.0-34.0); MCHC 32.3 g/dL (31.0-37.0); MCV 91.9 fL (80.0-100.0); MEAN PLATELET VOLUME 9.1 fL (7.4-10.4); MONOCYTES 14.8 % (2-11); NEUTROPHILS 67.3 % (40-80); PLATELET COUNT 325 10x3/uL (130-400); RBC 2.83 10x6/uL (4.00-5.40); RDW 16.2 % (11.5-14.5); WBC 12.1 10x3/uL (4.8-10.8)
[2017-12-11 04:32] LABS: ALBUMIN 2.9 g/dL (3.4-5.0); ANION GAP 12.4 mmol/L (8-16); BILIRUBIN - TOTAL 0.7 mg/dL (0.2-1.3); CARBON DIOXIDE 30.3 mmol/L (21.0-32.0); CREATININE - SERUM 0.8 mg/dL (0.6-1.3); POTASSIUM - SERUM 3.7 mmol/L (3.5-5.1); PROTEIN - SERUM 7.3 g/dL (6.4-8.2)
[2017-12-11 10:16] LABS: % SATURATION 6 % (15-55); IRON 15 ug/dl (35-150); TOTAL IRON BIND CAPACITY 232 ug/dl (260-445); UNSAT IRON BIND CAPACITY 217 ug/dl (150-375)
[2017-12-11 10:28] LABS: INR 2.38 (0.85-1.17); PROTIME 25.3 SECONDS (11.6-15.0)
[2017-12-11 10:30] LABS: FERRITIN 121 ng/mL (3-244); LDH 431 U/L (81-234); PRO BNP 13901 pg/mL (0-450)
[2017-12-12] VITALS (23 sets, daily range): BP systolic 96–160; BP diastolic 10–125
[2017-12-12 04:53] LABS: BASOPHILS 0.1 % (0-2); EOSINOPHILS 0.6 % (0-7); HEMATOCRIT 26.4 % (36.0-48.0); HEMOGLOBIN 8.5 g/dL (12-16); IMMATURE GRANULOCYTES 0.6 % (0-5); LYMPHOCYTES 19.8 % (15-50); MCHC 32.2 g/dL (31.0-37.0); MCV 93.3 fL (80.0-100.0); MEAN PLATELET VOLUME 9.1 fL (7.4-10.4); MONOCYTES 13.9 % (2-11); PLATELET COUNT 353 10x3/uL (130-400); RBC 2.83 10x6/uL (4.00-5.40); RDW 16.3 % (11.5-14.5); WBC 12.3 10x3/uL (4.8-10.8)
[2017-12-12 05:14] LABS: ALBUMIN 2.7 g/dL (3.4-5.0); ALKALINE PHOSPHATASE 91 U/L (46-116); ALT (SGPT) 15 U/L (10-68); CALC OSMOLALITY 287 mosm/kg (275-300); CALCIUM 8.9 mg/dL (8.5-10.1); CARBON DIOXIDE 31.4 mmol/L (21.0-32.0); CHLORIDE - SERUM 101 mmol/L (98-107); CREATININE - SERUM 0.7 mg/dL (0.6-1.3); GLUCOSE 123 mg/dL (74-106); SODIUM 141 mmol/L (136-145); UREA NITROGEN 30 mg/dL (7-18); eGFR NON AFRICAN AMERICAN 85 mL/min (90-120)
[2017-12-12 05:21] LABS: POTASSIUM - SERUM 2.9 mmol/L (3.5-5.1)
[2017-12-12 12:59] LABS: MAGNESIUM - SERUM 1.9 mg/dL (1.8-2.4)
[2017-12-12 13:00] LABS: POTASSIUM - SERUM 3.5 mmol/L (3.5-5.1)
[2017-12-13] VITALS (24 sets, daily range): BP systolic 91–135; BP diastolic 45–97
[2017-12-13 04:25] LABS: BASOPHILS 0.1 % (0-2); EOSINOPHILS 0.6 % (0-7); HEMATOCRIT 25.8 % (36.0-48.0); HEMOGLOBIN 8.2 g/dL (12-16); IMMATURE GRANULOCYTES 0.6 % (0-5); LYMPHOCYTES 18.6 % (15-50); MCHC 31.8 g/dL (31.0-37.0); MCV 94.5 fL (80.0-100.0); MEAN PLATELET VOLUME 8.8 fL (7.4-10.4); MONOCYTES 12.3 % (2-11); NEUTROPHILS 67.8 % (40-80); PLATELET COUNT 351 10x3/uL (130-400); RBC 2.73 10x6/uL (4.00-5.40); RDW 16.5 % (11.5-14.5); WBC 10.9 10x3/uL (4.8-10.8)
[2017-12-13 04:40] LABS: ALBUMIN 2.6 g/dL (3.4-5.0); ALKALINE PHOSPHATASE 86 U/L (46-116); ALT (SGPT) 15 U/L (10-68); CALC OSMOLALITY 286 mosm/kg (275-300); CALCIUM 8.5 mg/dL (8.5-10.1); CARBON DIOXIDE 34.4 mmol/L (21.0-32.0); CHLORIDE - SERUM 101 mmol/L (98-107); CREATININE - SERUM 0.7 mg/dL (0.6-1.3); GLUCOSE 134 mg/dL (74-106); POTASSIUM - SERUM 3.4 mmol/L (3.5-5.1); PROTEIN - SERUM 6.5 g/dL (6.4-8.2); SODIUM 139 mmol/L (136-145); UREA NITROGEN 31 mg/dL (7-18); eGFR NON AFRICAN AMERICAN 85 mL/min (90-120)
[2017-12-13 04:43] LABS: INR 2.44 (0.85-1.17); PROTIME 25.8 SECONDS (11.6-15.0)
[2017-12-14] VITALS (24 sets, daily range): BP systolic 84–141; BP diastolic 45–90
[2017-12-14 05:13] LABS: BASOPHILS 0.1 % (0-2); EOSINOPHILS 3.3 % (0-7); HEMATOCRIT 23.6 % (36.0-48.0); IMMATURE GRANULOCYTES 0.7 % (0-5); LYMPHOCYTES 24.2 % (15-50); MCH 29.6 pg (26.0-34.0); MCHC 30.9 g/dL (31.0-37.0); MCV 95.5 fL (80.0-100.0); MEAN PLATELET VOLUME 8.9 fL (7.4-10.4); MONOCYTES 11.8 % (2-11); NEUTROPHILS 59.9 % (40-80); PLATELET COUNT 328 10x3/uL (130-400); RBC 2.47 10x6/uL (4.00-5.40); RDW 16.1 % (11.5-14.5); WBC 8.6 10x3/uL (4.8-10.8)
[2017-12-14 05:20] LABS: HEMOGLOBIN 7.3 g/dL (12-16)
[2017-12-14 05:30] LABS: ANION GAP 9.7 mmol/L (8-16); CALCIUM 8.1 mg/dL (8.5-10.1); CARBON DIOXIDE 32.9 mmol/L (21.0-32.0); CREATININE - SERUM 0.8 mg/dL (0.6-1.3); POTASSIUM - SERUM 3.6 mmol/L (3.5-5.1)
[2017-12-15] VITALS (11 sets, daily range): BP systolic 104–152; BP diastolic 59–89
[2017-12-15 08:04] LABS: BASOPHILS 0.1 % (0-2); EOSINOPHILS 3.1 % (0-7); HEMATOCRIT 28.3 % (36.0-48.0); IMMATURE GRANULOCYTES 0.7 % (0-5); LYMPHOCYTES 21.4 % (15-50); MCH 29.8 pg (26.0-34.0); MCHC 31.8 g/dL (31.0-37.0); MCV 93.7 fL (80.0-100.0); MEAN PLATELET VOLUME 8.6 fL (7.4-10.4); MONOCYTES 9.2 % (2-11); NEUTROPHILS 65.5 % (40-80); PLATELET COUNT 294 10x3/uL (130-400); RDW 16.9 % (11.5-14.5)
[2017-12-15 08:07] LABS: RBC 3.02 10x6/uL (4.00-5.40)
[2017-12-15 08:16] LABS: CALCIUM 8.4 mg/dL (8.5-10.1); CARBON DIOXIDE 33.7 mmol/L (21.0-32.0); CHLORIDE - SERUM 100 mmol/L (98-107); CREATININE - SERUM 0.7 mg/dL (0.6-1.3); GLUCOSE 108 mg/dL (74-106); MAGNESIUM - SERUM 1.8 mg/dL (1.8-2.4); SODIUM 138 mmol/L (136-145); eGFR NON AFRICAN AMERICAN 85 mL/min (90-120)
[2017-12-15 08:21] LABS: CALC OSMOLALITY 281 mosm/kg (275-300); UREA NITROGEN 27 mg/dL (7-18)
[2017-12-16 00:52] VITALS: BP 99/83
[2017-12-16 04:17] VITALS: BP 178/96
[2017-12-16 06:55] LABS: BASOPHILS 0.2 % (0-2); HEMOGLOBIN 9.6 g/dL (12-16); IMMATURE GRANULOCYTES 0.6 % (0-5); LYMPHOCYTES 21.5 % (15-50); MCH 30.3 pg (26.0-34.0); MCV 94.6 fL (80.0-100.0); MEAN PLATELET VOLUME 8.7 fL (7.4-10.4); MONOCYTES 8.8 % (2-11); NEUTROPHILS 66.9 % (40-80); PLATELET COUNT 327 10x3/uL (130-400); RBC 3.17 10x6/uL (4.00-5.40); WBC 9.8 10x3/uL (4.8-10.8)
[2017-12-16 07:15] LABS: CALC OSMOLALITY 284 mosm/kg (275-300); CALCIUM 8.6 mg/dL (8.5-10.1); CARBON DIOXIDE 36.1 mmol/L (21.0-32.0); CHLORIDE - SERUM 100 mmol/L (98-107); CREATININE - SERUM 0.6 mg/dL (0.6-1.3); GLUCOSE 120 mg/dL (74-106); MAGNESIUM - SERUM 1.7 mg/dL (1.8-2.4); POTASSIUM - SERUM 3.2 mmol/L (3.5-5.1); SODIUM 141 mmol/L (136-145); UREA NITROGEN 22 mg/dL (7-18); eGFR NON AFRICAN AMERICAN > 90 mL/min (90-120)
[2017-12-16 09:09] VITALS: BP 124/65
[2017-12-16 12:31] VITALS: BP 129/72
[2017-12-16 19:34] VITALS: BP 157/76
[2017-12-17 00:58] VITALS: BP 127/66
[2017-12-17 04:05] VITALS: BP 148/74
[2017-12-17 08:25] VITALS: BP 146/69
[2017-12-17 13:22] VITALS: BP 139/75
[2017-12-17 14:47] LABS: BASOPHILS 0.1 % (0-2); EOSINOPHILS 0.9 % (0-7); HEMATOCRIT 30.2 % (36.0-48.0); HEMOGLOBIN 9.8 g/dL (12-16); IMMATURE GRANULOCYTES 0.5 % (0-5); MCH 30.7 pg (26.0-34.0); MCHC 32.5 g/dL (31.0-37.0); MCV 94.7 fL (80.0-100.0); MEAN PLATELET VOLUME 8.5 fL (7.4-10.4); MONOCYTES 11.5 % (2-11); PLATELET COUNT 280 10x3/uL (130-400); RBC 3.19 10x6/uL (4.00-5.40); RDW 17.1 % (11.5-14.5); WBC 12.2 10x3/uL (4.8-10.8)
[2017-12-17 15:03] LABS: CALC OSMOLALITY 282 mosm/kg (275-300); CALCIUM 8.7 mg/dL (8.5-10.1); CARBON DIOXIDE 33.7 mmol/L (21.0-32.0); CHLORIDE - SERUM 100 mmol/L (98-107); CREATININE - SERUM 0.6 mg/dL (0.6-1.3); GLUCOSE 111 mg/dL (74-106); MAGNESIUM - SERUM 1.7 mg/dL (1.8-2.4); POTASSIUM - SERUM 3.5 mmol/L (3.5-5.1); SODIUM 141 mmol/L (136-145); eGFR NON AFRICAN AMERICAN > 90 mL/min (90-120)
[2017-12-17 15:09] LABS: UREA NITROGEN 16 mg/dL (7-18)
[2017-12-17 16:55] VITALS: BP 157/79
[2017-12-17 20:00] VITALS: BP 161/77
[2017-12-18 00:18] VITALS: BP 131/65
[2017-12-18 01:41] LABS: MAGNESIUM - SERUM 1.6 mg/dL (1.8-2.4); POTASSIUM - SERUM 3.6 mmol/L (3.5-5.1)
[2017-12-18 04:10] VITALS: BP 148/75
[2017-12-18 06:16] LABS: BASOPHILS 0.1 % (0-2); EOSINOPHILS 1.5 % (0-7); HEMATOCRIT 29.1 % (36.0-48.0); HEMOGLOBIN 9.3 g/dL (12-16); IMMATURE GRANULOCYTES 0.3 % (0-5); LYMPHOCYTES 20.4 % (15-50); MCH 30.4 pg (26.0-34.0); MCV 95.1 fL (80.0-100.0); NEUTROPHILS 66.7 % (40-80); PLATELET COUNT 300 10x3/uL (130-400); RBC 3.06 10x6/uL (4.00-5.40); RDW 17.3 % (11.5-14.5)
[2017-12-18 06:17] LABS: WBC 8.7 10x3/uL (4.8-10.8)
[2017-12-18 06:45] LABS: CALC OSMOLALITY 283 mosm/kg (275-300); CALCIUM 8.5 mg/dL (8.5-10.1); CHLORIDE - SERUM 102 mmol/L (98-107); CREATININE - SERUM 0.7 mg/dL (0.6-1.3); GLUCOSE 105 mg/dL (74-106); MAGNESIUM - SERUM 1.7 mg/dL (1.8-2.4); POTASSIUM - SERUM 3.5 mmol/L (3.5-5.1); SODIUM 142 mmol/L (136-145); UREA NITROGEN 16 mg/dL (7-18); eGFR NON AFRICAN AMERICAN 85 mL/min (90-120)
[2017-12-18 08:28] VITALS: BP 156/83
[2017-12-18 10:22] LABS: INR 1.2 (0.85-1.17); PROTIME 14.7 SECONDS (11.6-15.0)
[2017-12-18] MEDS ORDERED: LASIX40 MG PO (13:11)
[2017-12-18] MEDS ORDERED: COLACE100 MG PO (13:11)
[2017-12-18] MEDS ORDERED: KLOR-CON 1010 MEQ PO (13:12)
[2017-12-18] MEDS ORDERED: PRADAXA75 MG PO (13:13)
[2017-12-18 15:57] VITALS: BP 154/86
[2017-12-18 19:15] VITALS: BP 155/92
[2017-12-18 20:00] VITALS: BP 156/77
[2017-12-19] VITALS: BP 149/67
[2017-12-19 04:01] VITALS: BP 164/89
[2017-12-19 06:17] LABS: BASOPHILS 0.4 % (0-2); EOSINOPHILS 1.4 % (0-7); HEMATOCRIT 31.7 % (36.0-48.0); HEMOGLOBIN 10.1 g/dL (12-16); IMMATURE GRANULOCYTES 0.4 % (0-5); LYMPHOCYTES 25.1 % (15-50); MCH 30.1 pg (26.0-34.0); MCHC 31.9 g/dL (31.0-37.0); MCV 94.6 fL (80.0-100.0); MONOCYTES 12.8 % (2-11); NEUTROPHILS 59.9 % (40-80); PLATELET COUNT 317 10x3/uL (130-400); RBC 3.35 10x6/uL (4.00-5.40); RDW 17.6 % (11.5-14.5); WBC 8.4 10x3/uL (4.8-10.8)
[2017-12-19 06:43] LABS: ALBUMIN 2.5 g/dL (3.4-5.0); ALKALINE PHOSPHATASE 106 U/L (46-116); ALT (SGPT) 29 U/L (10-68); CALC OSMOLALITY 283 mosm/kg (275-300); CALCIUM 9.1 mg/dL (8.5-10.1); CARBON DIOXIDE 31.9 mmol/L (21.0-32.0); CHLORIDE - SERUM 101 mmol/L (98-107); CREATININE - SERUM 0.6 mg/dL (0.6-1.3); GLUCOSE 104 mg/dL (74-106); PROTEIN - SERUM 6.4 g/dL (6.4-8.2); SODIUM 142 mmol/L (136-145); UREA NITROGEN 15 mg/dL (7-18); eGFR NON AFRICAN AMERICAN > 90 mL/min (90-120)
[2017-12-19 06:44] LABS: POTASSIUM - SERUM 2.9 mmol/L (3.5-5.1)
[2017-12-19 08:34] VITALS: BP 162/83
== END 2017-12-19 13:20 | DRG 813 ==
LOC: D.ER 10:14 → D.ICU 12:57 → D.MS 12:57 → D.EDHOLD 12:57 → D.ICU 20:03 → D.MS 12-15 13:03
PROVIDERS: Emergency Medicine; Family Medicine; Internal Medicine Gastroenterology; Internal Medicine Hematology & Oncology; Internal Medicine Nephrology
PROC: 0DJ08ZZ Inspection of Upper Intestinal Tract, Via Natural or Artificial Opening Endoscopic (ICD-10-PCS; principal; 2017-12-14 13:00)
DX: D68.32 Hemorrhagic disorder due to extrinsic circulating anticoagulants (principal); J18.9 Pneumonia, unspecified organism; G92 Toxic encephalopathy; J96.01 Acute respiratory failure with hypoxia; E87.1 Hypo-osmolality and hyponatremia; N17.9 Acute kidney failure, unspecified; N39.0 Urinary tract infection, site not specified; D62 Acute posthemorrhagic anemia; T45.515A Adverse effect of anticoagulants, initial encounter; D68.9 Coagulation defect, unspecified; I95.9 Hypotension, unspecified; I12.9 Hypertensive chronic kidney disease with stage 1 through stage 4 chronic kidney disease, or unspecified chronic kidney disease; N18.9 Chronic kidney disease, unspecified; R31.9 Hematuria, unspecified; R53.1 Weakness; F03.90 Unspecified dementia, unspecified severity, without behavioral disturbance, psychotic disturbance, mood disturbance, and anxiety; E87.6 Hypokalemia; E86.0 Dehydration; E03.9 Hypothyroidism, unspecified; K56.41 Fecal impaction; R04.0 Epistaxis; D25.9 Leiomyoma of uterus, unspecified; G72.9 Myopathy, unspecified; I48.91 Unspecified atrial fibrillation; D50.9 Iron deficiency anemia, unspecified; G47.00 Insomnia, unspecified; B96.20 Unspecified Escherichia coli [E. coli] as the cause of diseases classified elsewhere; D63.1 Anemia in chronic kidney disease

== ENCOUNTER 2018-01-05 05:54 | Inpatient (IN) | payer MEDICARE ==
[~2018-01-05] VITALS: Ht 167.6 cm; Wt 68.2 kg
[2018-01-05] VITALS (7 sets, daily range): BP systolic 81–126; BP diastolic 49–70; Ht 167.6 cm; Wt 68.2 kg
[~2018-01-05 05:54] MED LIST changes: +COLACE100 MG PO; +KLOR-CON 1010 MEQ PO; +LASIX40 MG PO; +PRADAXA75 MG PO
[2018-01-05 06:44] LABS: APPEARANCE CLOUDY (CLEAR); BILIRUBIN NEGATIVE (NEGATIVE); COLOR RED (YELLOW); GLUCOSE NEGATIVE (NEGATIVE); KETONE NEGATIVE (NEGATIVE); NITRITE NEGATIVE (NEGATIVE); PROTEIN 3+ mg/dL (NEGATIVE); UROBILINOGEN NORMAL (NORMAL)
[2018-01-05 06:44] LABS: BASOPHILS 0.1 % (0-2); EOSINOPHILS 0.4 % (0-7); HEMATOCRIT 36.1 % (36.0-48.0); HEMOGLOBIN 12.3 g/dL (12-16); IMMATURE GRANULOCYTES 0.7 % (0-5); LYMPHOCYTES 10.9 % (15-50); MCH 30.6 pg (26.0-34.0); MCHC 34.1 g/dL (31.0-37.0); MCV 89.8 fL (80.0-100.0); MEAN PLATELET VOLUME 8.8 fL (7.4-10.4); MONOCYTES 10.7 % (2-11); NEUTROPHILS 77.2 % (40-80); PLATELET COUNT 308 10x3/uL (130-400); RBC 4.02 10x6/uL (4.00-5.40); RDW 17.1 % (11.5-14.5); WBC 17.9 10x3/uL (4.8-10.8)
[2018-01-05 06:45] LABS: BACTERIA MODERATE /hpf (NONE SEEN); EPITHELIAL CELLS 0-5 /hpf (0-5); RED CELLS - URINE 25-50 /hpf (0-5); WHITE CELLS - URINE 25-50 /hpf (0-5)
[2018-01-05 07:09] LABS: INR 1.73 (0.85-1.17); PROTIME 19.7 SECONDS (11.6-15.0)
[2018-01-05 07:22] LABS: ALBUMIN 2.5 g/dL (3.4-5.0); ANION GAP 20.7 mmol/L (8-16); BILIRUBIN - TOTAL 0.74 mg/dL (0.2-1.3); CARBON DIOXIDE 22.4 mmol/L (21.0-32.0); CREATININE - SERUM 1.4 mg/dL (0.6-1.3); POTASSIUM - SERUM 5.1 mmol/L (3.5-5.1); PROTEIN - SERUM 6.4 g/dL (6.4-8.2)
[2018-01-06] VITALS: BP 145/78
[2018-01-06 04:00] VITALS: BP 108/57
[2018-01-06 06:25] LABS: BASOPHILS 0.1 % (0-2); EOSINOPHILS 0.3 % (0-7); HEMATOCRIT 32.3 % (36.0-48.0); HEMOGLOBIN 10.6 g/dL (12-16); IMMATURE GRANULOCYTES 0.8 % (0-5); LYMPHOCYTES 12.1 % (15-50); MCHC 32.8 g/dL (31.0-37.0); MCV 91.5 fL (80.0-100.0); MEAN PLATELET VOLUME 8.4 fL (7.4-10.4); MONOCYTES 8.5 % (2-11); NEUTROPHILS 78.2 % (40-80); RBC 3.53 10x6/uL (4.00-5.40); RDW 17.6 % (11.5-14.5); WBC 15.7 10x3/uL (4.8-10.8)
[2018-01-06 06:27] LABS: PLATELET COUNT 235 10x3/uL (130-400)
[2018-01-06 06:48] LABS: ANION GAP 11.7 mmol/L (8-16); CALCIUM 8.4 mg/dL (8.5-10.1); CARBON DIOXIDE 24.4 mmol/L (21.0-32.0); CREATININE - SERUM 1.4 mg/dL (0.6-1.3); POTASSIUM - SERUM 4.1 mmol/L (3.5-5.1)
[2018-01-06 17:22] VITALS: BP 122/60
[2018-01-06 20:00] VITALS: BP 108/58
[2018-01-07 04:00] VITALS: BP 145/66
[2018-01-07 05:29] LABS: BASOPHILS 0.1 % (0-2); EOSINOPHILS 0.4 % (0-7); HEMATOCRIT 34.8 % (36.0-48.0); HEMOGLOBIN 11.7 g/dL (12-16); IMMATURE GRANULOCYTES 0.9 % (0-5); LYMPHOCYTES 9.7 % (15-50); MCH 30.7 pg (26.0-34.0); MCHC 33.6 g/dL (31.0-37.0); MCV 91.3 fL (80.0-100.0); MEAN PLATELET VOLUME 8.7 fL (7.4-10.4); NEUTROPHILS 80.9 % (40-80); PLATELET COUNT 270 10x3/uL (130-400); RBC 3.81 10x6/uL (4.00-5.40); RDW 17.7 % (11.5-14.5); WBC 12.8 10x3/uL (4.8-10.8)
[2018-01-07 05:45] LABS: ANION GAP 15.2 mmol/L (8-16); CALCIUM 8.7 mg/dL (8.5-10.1); CARBON DIOXIDE 21.7 mmol/L (21.0-32.0)
[2018-01-07 05:53] LABS: CREATININE - SERUM 0.9 mg/dL (0.6-1.3); POTASSIUM - SERUM 2.9 mmol/L (3.5-5.1)
[2018-01-07 08:10] VITALS: BP 138/69
[2018-01-07 11:31] VITALS: BP 134/85
[2018-01-07 15:57] VITALS: BP 156/85
[2018-01-07 20:00] VITALS: BP 149/76
[2018-01-08 05:39] LABS: BASOPHILS 0.3 % (0-2); EOSINOPHILS 0.6 % (0-7); HEMATOCRIT 34.7 % (36.0-48.0); HEMOGLOBIN 11.4 g/dL (12-16); IMMATURE GRANULOCYTES 1.9 % (0-5); LYMPHOCYTES 13.9 % (15-50); MCH 30.2 pg (26.0-34.0); MCHC 32.9 g/dL (31.0-37.0); MEAN PLATELET VOLUME 8.7 fL (7.4-10.4); MONOCYTES 9.7 % (2-11); NEUTROPHILS 73.6 % (40-80); PLATELET COUNT 255 10x3/uL (130-400); RBC 3.77 10x6/uL (4.00-5.40); RDW 17.8 % (11.5-14.5); WBC 10.8 10x3/uL (4.8-10.8)
[2018-01-08 06:07] VITALS: BP 150/87
[2018-01-08 06:09] LABS: ANION GAP 15.6 mmol/L (8-16); CALCIUM 8.6 mg/dL (8.5-10.1); CARBON DIOXIDE 21.5 mmol/L (21.0-32.0); CREATININE - SERUM 0.8 mg/dL (0.6-1.3); POTASSIUM - SERUM 3.1 mmol/L (3.5-5.1)
[2018-01-08 08:32] VITALS: BP 154/82
[2018-01-08 11:31] VITALS: BP 142/79
[2018-01-08 16:54] VITALS: BP 140/87
[2018-01-08 20:45] VITALS: BP 147/81
[2018-01-09 01:02] VITALS: BP 143/80
[2018-01-09 06:12] VITALS: BP 145/88
[2018-01-09 08:21] VITALS: BP 142/82
[2018-01-09 11:52] VITALS: BP 148/78
[2018-01-09] MEDS ORDERED: LEVAQUIN500 MG PO (12:05)
[2018-01-09 15:47] VITALS: BP 143/75
[2018-01-09 20:35] VITALS: BP 88/64
[2018-01-10 01:41] VITALS: BP 76/46
[2018-01-10 04:00] VITALS: BP 123/81
[2018-01-10 09:22] VITALS: BP 148/85
[2018-01-10 15:43] VITALS: BP 149/75
[2018-01-10 16:24] VITALS: BP 148/86
[2018-01-10 21:58] VITALS: BP 135/90
[2018-01-11 00:56] VITALS: BP 131/78
[2018-01-11 06:10] VITALS: BP 153/77
[2018-01-11 08:25] VITALS: BP 164/86
[2018-01-11 11:54] VITALS: BP 147/83
== END 2018-01-11 16:30 | DRG 682 ==
LOC: D.ER 05:54 → D.EDHOLD 08:11 → D.M2 08:11
PROVIDERS: Emergency Medicine; Family Medicine; Internal Medicine Nephrology
DX: N17.9 Acute kidney failure, unspecified (principal); G93.41 Metabolic encephalopathy; N39.0 Urinary tract infection, site not specified; E87.1 Hypo-osmolality and hyponatremia; D50.9 Iron deficiency anemia, unspecified; K59.09 Other constipation; I10 Essential (primary) hypertension; I48.91 Unspecified atrial fibrillation; E03.9 Hypothyroidism, unspecified; B96.5 Pseudomonas (aeruginosa) (mallei) (pseudomallei) as the cause of diseases classified elsewhere; R31.9 Hematuria, unspecified; E86.0 Dehydration

== ENCOUNTER 2018-02-11 11:58 | Inpatient (IN) | payer MEDICARE ==
[~2018-02-11] VITALS: Ht 167.6 cm; Wt 59.0 kg
[~2018-02-11 11:58] MED LIST changes: +LEVAQUIN500 MG PO
[2018-02-11] MEDS ORDERED: ZOLOFT25 MG PO (12:31)
[2018-02-11 12:53] LABS: BASOPHILS 0.1 % (0-2); EOSINOPHILS 0.2 % (0-7); HEMATOCRIT 38.2 % (36.0-48.0); HEMOGLOBIN 12.5 g/dL (12-16); IMMATURE GRANULOCYTES 0.8 % (0-5); LYMPHOCYTES 22.9 % (15-50); MCH 31.3 pg (26.0-34.0); MCHC 32.7 g/dL (31.0-37.0); MCV 95.5 fL (80.0-100.0); MEAN PLATELET VOLUME 9.7 fL (7.4-10.4); MONOCYTES 3.7 % (2-11); NEUTROPHILS 72.3 % (40-80); PLATELET COUNT 382 10x3/uL (130-400); WBC 16.7 10x3/uL (4.8-10.8)
[2018-02-11 13:00] VITALS: BP 106/49
[2018-02-11 13:10] LABS: ALBUMIN 2.9 g/dL (3.4-5.0); ALKALINE PHOSPHATASE 87 U/L (46-116); ALT (SGPT) 19 U/L (10-68); BILIRUBIN - TOTAL 1.17 mg/dL (0.2-1.3); CALC OSMOLALITY 315 mosm/kg (275-300); CALCIUM 8.8 mg/dL (8.5-10.1); CARBON DIOXIDE 21.7 mmol/L (21.0-32.0); CHLORIDE - SERUM 101 mmol/L (98-107); CREATININE - SERUM 4.3 mg/dL (0.6-1.3); POTASSIUM - SERUM 5.2 mmol/L (3.5-5.1); PROTEIN - SERUM 7.1 g/dL (6.4-8.2); SODIUM 138 mmol/L (136-145); UREA NITROGEN 113 mg/dL (7-18); eGFR NON AFRICAN AMERICAN 10 mL/min (90-120)
[2018-02-11 13:14] LABS: GLUCOSE 162 mg/dL (74-106)
[2018-02-11 13:27] LABS: CREATINE KINASE 53 UL (21-215)
[2018-02-11 13:28] LABS: TROPONIN-I 0.247 ng/mL (0.000-0.060)
[2018-02-11 13:29] LABS: APPEARANCE TURBID (CLEAR); BILIRUBIN NEGATIVE (NEGATIVE); COLOR BROWN (YELLOW); GLUCOSE NEGATIVE (NEGATIVE); KETONE NEGATIVE (NEGATIVE); NITRITE NEGATIVE (NEGATIVE); PROTEIN 2+ mg/dL (NEGATIVE); SPECIFIC GRAVITY 1.015 (1.005-1.020)
[2018-02-11 13:34] LABS: BACTERIA MODERATE /hpf (NONE SEEN); EPITHELIAL CELLS RARE /hpf (0-5); WHITE CELLS - URINE >50 /hpf (0-5)
[2018-02-11 13:35] LABS: MUCUS <1+ /lpf (NONE SEEN); RED CELLS - URINE 0-5 /hpf (0-5)
[2018-02-11 14:00] VITALS: BP 111/49
[2018-02-11 16:30] VITALS: BP 092/44
[2018-02-11 17:30] VITALS: BP 095/050
[2018-02-12 00:18] VITALS: BP 80/48; BMI 21.0
[2018-02-12 04:00] VITALS: BP 70/40
[2018-02-12 06:03] LABS: BASOPHILS 0.2 % (0-2); EOSINOPHILS 0.5 % (0-7); HEMATOCRIT 35.2 % (36.0-48.0); HEMOGLOBIN 11.4 g/dL (12-16); IMMATURE GRANULOCYTES 0.6 % (0-5); LYMPHOCYTES 18.5 % (15-50); MCH 30.9 pg (26.0-34.0); MCHC 32.4 g/dL (31.0-37.0); MCV 95.4 fL (80.0-100.0); MEAN PLATELET VOLUME 9.5 fL (7.4-10.4); MONOCYTES 7.3 % (2-11); NEUTROPHILS 72.9 % (40-80); RBC 3.69 10x6/uL (4.00-5.40); RDW 20.3 % (11.5-14.5)
[2018-02-12 06:19] LABS: PLATELET COUNT 290 10x3/uL (130-400); WBC 12.3 10x3/uL (4.8-10.8)
[2018-02-12 06:27] LABS: CARBON DIOXIDE 18.8 mmol/L (21.0-32.0); CREATININE - SERUM 3.4 mg/dL (0.6-1.3)
[2018-02-12 06:29] LABS: POTASSIUM - SERUM 3.8 mmol/L (3.5-5.1)
[2018-02-12 08:11] VITALS: BP 80/46
[2018-02-12 11:50] VITALS: BP 85/51
[2018-02-12 14:18] VITALS: BMI 20.9
[2018-02-12 15:06] VITALS: Ht 167.6 cm; Wt 59.0 kg
[2018-02-12 15:52] VITALS: BP 90/42
[2018-02-12 20:34] VITALS: BP 109/55
[2018-02-13 01:15] VITALS: BP 107/47
[2018-02-13 05:40] VITALS: BP 110/59
[2018-02-13 06:20] LABS: BASOPHILS 0.1 % (0-2); EOSINOPHILS 0.5 % (0-7); HEMATOCRIT 35.1 % (36.0-48.0); HEMOGLOBIN 11.3 g/dL (12-16); IMMATURE GRANULOCYTES 0.6 % (0-5); LYMPHOCYTES 21.6 % (15-50); MCH 30.9 pg (26.0-34.0); MCHC 32.2 g/dL (31.0-37.0); MCV 95.9 fL (80.0-100.0); MEAN PLATELET VOLUME 9.5 fL (7.4-10.4); MONOCYTES 7.3 % (2-11); NEUTROPHILS 69.9 % (40-80); PLATELET COUNT 274 10x3/uL (130-400); RBC 3.66 10x6/uL (4.00-5.40); RDW 20.3 % (11.5-14.5); WBC 9.5 10x3/uL (4.8-10.8)
[2018-02-13 06:43] LABS: ALBUMIN 2.3 g/dL (3.4-5.0); ANION GAP 20.8 mmol/L (8-16); BILIRUBIN - TOTAL 0.79 mg/dL (0.2-1.3); CARBON DIOXIDE 19.6 mmol/L (21.0-32.0); MAGNESIUM - SERUM 2.5 mg/dL (1.8-2.4); PHOSPHOROUS 3.9 mg/dL (2.5-4.9); PROTEIN - SERUM 6.1 g/dL (6.4-8.2)
[2018-02-13 06:47] LABS: CREATININE - SERUM 2.4 mg/dL (0.6-1.3); POTASSIUM - SERUM 2.4 mmol/L (3.5-5.1)
[2018-02-13 08:42] VITALS: BP 145/63
[2018-02-13 11:38] VITALS: BP 114/66
[2018-02-13 16:04] VITALS: BP 136/77
[2018-02-13 21:02] VITALS: BP 121/71
[2018-02-14 05:36] LABS: BASOPHILS 0.1 % (0-2); EOSINOPHILS 0.5 % (0-7); IMMATURE GRANULOCYTES 1.1 % (0-5); MCH 30.8 pg (26.0-34.0); MCHC 32.4 g/dL (31.0-37.0); MCV 94.9 fL (80.0-100.0); MEAN PLATELET VOLUME 9.4 fL (7.4-10.4); MONOCYTES 6.4 % (2-11); NEUTROPHILS 66.9 % (40-80); PLATELET COUNT 277 10x3/uL (130-400); RDW 19.9 % (11.5-14.5); WBC 9.2 10x3/uL (4.8-10.8)
[2018-02-14 06:11] VITALS: BP 152/72
[2018-02-14 06:22] LABS: ALBUMIN 2.3 g/dL (3.4-5.0); ANION GAP 18.5 mmol/L (8-16); BILIRUBIN - TOTAL 0.77 mg/dL (0.2-1.3); CALCIUM 8.3 mg/dL (8.5-10.1); CARBON DIOXIDE 20.2 mmol/L (21.0-32.0); MAGNESIUM - SERUM 2.1 mg/dL (1.8-2.4); PROTEIN - SERUM 6.2 g/dL (6.4-8.2)
[2018-02-14 07:15] LABS: PHOSPHOROUS 2.6 mg/dL (2.5-4.9)
[2018-02-14 07:16] LABS: CREATININE - SERUM 1.7 mg/dL (0.6-1.3); POTASSIUM - SERUM 2.7 mmol/L (3.5-5.1)
[2018-02-14 07:48] VITALS: BP 153/73
[2018-02-14 11:52] VITALS: BP 143/76
[2018-02-14 15:54] VITALS: BP 115/64
[2018-02-14 21:00] VITALS: BP 114/63
[2018-02-15 02:11] VITALS: BP 114/70
[2018-02-15 06:28] VITALS: BP 133/72
[2018-02-15 07:40] VITALS: BP 133/75
[2018-02-15 11:55] VITALS: BP 130/61
[2018-02-15 15:08] VITALS: BP 127/64
[2018-02-15 21:12] VITALS: BP 123/66
[2018-02-16] VITALS (7 sets, daily range): BP systolic 120–153; BP diastolic 64–77
[2018-02-16 06:12] LABS: BASOPHILS 0.1 % (0-2); EOSINOPHILS 0.7 % (0-7); HEMOGLOBIN 10.9 g/dL (12-16); IMMATURE GRANULOCYTES 0.6 % (0-5); MCV 93.8 fL (80.0-100.0); MEAN PLATELET VOLUME 9.6 fL (7.4-10.4); MONOCYTES 7.8 % (2-11); NEUTROPHILS 61.8 % (40-80); PLATELET COUNT 233 10x3/uL (130-400); RBC 3.52 10x6/uL (4.00-5.40); RDW 18.7 % (11.5-14.5); WBC 8.1 10x3/uL (4.8-10.8)
[2018-02-16 06:37] LABS: ALBUMIN 1.9 g/dL (3.4-5.0); ANION GAP 19.7 mmol/L (8-16); BILIRUBIN - TOTAL 0.85 mg/dL (0.2-1.3); CARBON DIOXIDE 16.8 mmol/L (21.0-32.0); CREATININE - SERUM 0.9 mg/dL (0.6-1.3); MAGNESIUM - SERUM 1.5 mg/dL (1.8-2.4); PHOSPHOROUS 2.1 mg/dL (2.5-4.9); PROTEIN - SERUM 5.5 g/dL (6.4-8.2)
[2018-02-16 06:50] LABS: POTASSIUM - SERUM 2.5 mmol/L (3.5-5.1)
[2018-02-17 04:00] VITALS: BP 150/81
[2018-02-17 05:44] LABS: BASOPHILS 0.1 % (0-2); EOSINOPHILS 0.9 % (0-7); HEMATOCRIT 36.7 % (36.0-48.0); HEMOGLOBIN 11.9 g/dL (12-16); IMMATURE GRANULOCYTES 0.5 % (0-5); MCH 30.5 pg (26.0-34.0); MCHC 32.4 g/dL (31.0-37.0); MCV 94.1 fL (80.0-100.0); MONOCYTES 6.7 % (2-11); NEUTROPHILS 64.8 % (40-80); PLATELET COUNT 201 10x3/uL (130-400); RDW 18.9 % (11.5-14.5); WBC 9.5 10x3/uL (4.8-10.8)
[2018-02-17 06:47] LABS: ALBUMIN 2.1 g/dL (3.4-5.0); ANION GAP 19.8 mmol/L (8-16); BILIRUBIN - TOTAL 0.76 mg/dL (0.2-1.3); CALCIUM 8.4 mg/dL (8.5-10.1); CARBON DIOXIDE 15.2 mmol/L (21.0-32.0); CREATININE - SERUM 0.9 mg/dL (0.6-1.3); PHOSPHOROUS 1.8 mg/dL (2.5-4.9); PROTEIN - SERUM 5.7 g/dL (6.4-8.2)
[2018-02-17 06:51] LABS: MAGNESIUM - SERUM 1.9 mg/dL (1.8-2.4)
[2018-02-17 08:37] VITALS: BP 154/77
[2018-02-17 12:27] VITALS: BP 133/87
[2018-02-17 20:00] VITALS: BP 127/74
[2018-02-18] VITALS: BP 121/77
[2018-02-18] MEDS ORDERED: APAP325 MG PO (08:34)
[2018-02-18] MEDS ORDERED: CALCI-CHEW1 TAB.CHEW PO (08:36)
[2018-02-18] MEDS ORDERED: KLONOPIN0.5 MG PO (08:41)
[2018-02-18] MEDS ORDERED: MILK OF MAGNESI30 ML PO (08:44)
[2018-02-18] MEDS ORDERED: MYLANTA / MAALO30 ML PO (08:46)
[2018-02-18 09:39] VITALS: BP 119/70
[2018-02-18 12:32] VITALS: BP 134/90
[2018-02-18 17:05] VITALS: BP 148/80
[2018-02-18 20:36] VITALS: BP 135/85
[2018-02-19 04:59] VITALS: BP 116/70
[2018-02-19 08:27] VITALS: BP 129/66
[2018-02-19 12:02] VITALS: BP 132/77
[2018-02-19 15:56] VITALS: BP 136/95
[2018-02-19 20:15] VITALS: BP 121/80
[2018-02-20 05:28] VITALS: BP 123/83
[2018-02-20 06:01] LABS: BASOPHILS 0.1 % (0-2); EOSINOPHILS 0.6 % (0-7); HEMATOCRIT 35.9 % (36.0-48.0); HEMOGLOBIN 12.3 g/dL (12-16); IMMATURE GRANULOCYTES 0.3 % (0-5); LYMPHOCYTES 20.2 % (15-50); MCHC 34.3 g/dL (31.0-37.0); MCV 90.4 fL (80.0-100.0); MEAN PLATELET VOLUME 9.7 fL (7.4-10.4); MONOCYTES 5.4 % (2-11); NEUTROPHILS 73.4 % (40-80); PLATELET COUNT 181 10x3/uL (130-400); RBC 3.97 10x6/uL (4.00-5.40); WBC 13.8 10x3/uL (4.8-10.8)
[2018-02-20 06:07] LABS: CALCIUM 7.6 mg/dL (8.5-10.1); CARBON DIOXIDE 18.6 mmol/L (21.0-32.0); CHLORIDE - SERUM 103 mmol/L (98-107); CREATININE - SERUM 0.6 mg/dL (0.6-1.3); SODIUM 136 mmol/L (136-145); UREA NITROGEN 6 mg/dL (7-18); eGFR NON AFRICAN AMERICAN > 90 mL/min (90-120)
[2018-02-20 06:31] LABS: CALC OSMOLALITY 266 mosm/kg (275-300); GLUCOSE 49 mg/dL (74-106); POTASSIUM - SERUM 2.2 mmol/L (3.5-5.1)
[2018-02-20 09:12] VITALS: BP 98/49
[2018-02-20] MEDS ORDERED: MACROBID100 MG PO (10:23)
[2018-02-20] MEDS ORDERED: MAG-OX 400 MG400 MG PO (10:23)
[2018-02-20] MEDS ORDERED: K-DUR20 MEQ PO (10:24)
[2018-02-20 12:08] VITALS: BP 100/65
[2018-02-20 16:05] VITALS: BP 143/84
== END 2018-02-20 16:50 | disposition home health service (06) | DRG 871 ==
LOC: D.ER 11:58 → D.EDHOLD 15:33 → D.M2 15:33 → D.ICU 23:26 → D.M2 23:58
PROVIDERS: Family Medicine; Family Medicine Adult Medicine
PROC: BT10YZZ Fluoroscopy of Bladder using Other Contrast (ICD-10-PCS; principal; 2018-02-12)
DX: A41.9 Sepsis, unspecified organism (principal); R65.21 Severe sepsis with septic shock; G93.41 Metabolic encephalopathy; N39.0 Urinary tract infection, site not specified; N17.9 Acute kidney failure, unspecified; E87.1 Hypo-osmolality and hyponatremia; E86.9 Volume depletion, unspecified; I12.9 Hypertensive chronic kidney disease with stage 1 through stage 4 chronic kidney disease, or unspecified chronic kidney disease; N18.9 Chronic kidney disease, unspecified; I48.2 Chronic atrial fibrillation; K59.09 Other constipation; D50.9 Iron deficiency anemia, unspecified; K57.90 Diverticulosis of intestine, part unspecified, without perforation or abscess without bleeding; B95.2 Enterococcus as the cause of diseases classified elsewhere; N32.3 Diverticulum of bladder; N13.70 Vesicoureteral-reflux, unspecified